=== PATIENT | female | born 1945 | race Two or more races ===

== ENCOUNTER 2018-03-21 10:00 | Outpatient (CLI) | payer OTHER | END 2018-03-21 10:04 | disposition home or self-care (01) | LOC: MAMO-SONO 10:00 | DX: Z12.31 Encounter for screening mammogram for malignant neoplasm of breast (principal); Z87.898 Personal history of other specified conditions; N64.4 Mastodynia ==

== ENCOUNTER 2020-04-04 06:26 | Day surgery (SDC) | payer OTHER ==
[~2020-04-04 06:26] MED LIST: ANASTROZOLE1 MG PO; ATACAND16 MG PO; NEXIUM40 M1 PO
== END 2020-04-04 22:00 | disposition home or self-care (01) ==
LOC: CIR.AMB 06:26
PROVIDERS: ATTEND Surgery
DX: C50.411 Malignant neoplasm of upper-outer quadrant of right female breast (principal); Z20.828 Contact with and (suspected) exposure to other viral communicable diseases

== ENCOUNTER 2020-04-25 12:22 | Outpatient (CLI) | payer OTHER | END 2020-04-25 12:42 | disposition home or self-care (01) | LOC: SONOGRAMA 12:22 | PROVIDERS: ATTEND Surgery | DX: C50.811 Malignant neoplasm of overlapping sites of right female breast (principal); N60.11 Diffuse cystic mastopathy of right breast; N60.12 Diffuse cystic mastopathy of left breast ==

== ENCOUNTER 2020-05-12 17:41 | Emergency (ER) | payer OTHER ==
[~2020-05-12] VITALS: Ht 177.8 cm; Wt 77.1 kg
== END 2020-05-12 19:58 | disposition home or self-care (01) ==
LOC: ER 17:41
DX: L02.411 Cutaneous abscess of right axilla (principal); T81.49XA Infection following a procedure, other surgical site, initial encounter

== ENCOUNTER 2020-05-16 12:47 | Outpatient (CLI) | payer OTHER | END 2020-05-16 13:01 | disposition home or self-care (01) | LOC: SONOGRAMA 12:47 | PROVIDERS: ATTEND Surgery | DX: C50.411 Malignant neoplasm of upper-outer quadrant of right female breast (principal); N61.0 Mastitis without abscess; N61.1 Abscess of the breast and nipple ==

== ENCOUNTER 2021-07-24 07:25 | Outpatient (CLI) | payer OTHER | END 2021-07-24 10:13 | disposition home or self-care (01) | LOC: NUCLEAR 07:25 | PROVIDERS: ATTEND Internal Medicine Cardiovascular Disease | DX: R07.89 Other chest pain (principal) | CPT/HCPCS: 78452; 93017; A9500 ==

== ENCOUNTER 2022-07-15 13:30 | Outpatient (CLI) | payer OTHER ==
[~2022-07-15 13:30] MED LIST changes: +FLONASE16 GM NASAL
== END 2022-07-15 13:34 | disposition home or self-care (01) ==
LOC: NUCLEAR 13:30
PROVIDERS: ATTEND Obstetrics & Gynecology
DX: M81.0 Age-related osteoporosis without current pathological fracture (principal)

== ENCOUNTER 2022-08-06 08:10 | Outpatient (CLI) | payer OTHER | END 2022-08-06 08:27 | disposition home or self-care (01) | LOC: MRI 08:10 | PROVIDERS: ATTEND Neuromusculoskeletal Medicine & OMM | DX: I72.9 Aneurysm of unspecified site (principal); I65.1 Occlusion and stenosis of basilar artery; I65.09 Occlusion and stenosis of unspecified vertebral artery; I65.29 Occlusion and stenosis of unspecified carotid artery; Q28.2 Arteriovenous malformation of cerebral vessels; R41.3 Other amnesia | CPT/HCPCS: 70546; 70553; Q9965; 70544 ==

== ENCOUNTER 2022-11-05 11:59 | Outpatient (CLI) | payer OTHER | END 2022-11-05 12:03 | disposition home or self-care (01) | LOC: RAD 11:59 | PROVIDERS: ATTEND Orthopaedic Surgery | DX: M16.11 Unilateral primary osteoarthritis, right hip (principal); M54.59 Other low back pain ==

== ENCOUNTER 2023-05-25 10:13 | Outpatient (CLI) | payer OTHER | END 2023-05-25 10:15 | disposition home or self-care (01) | LOC: TOM 10:13 | DX: R10.11 Right upper quadrant pain (principal) ==

== ENCOUNTER 2024-07-06 07:18 | Outpatient (CLI) | payer OTHER | END 2024-07-06 07:19 | disposition home or self-care (01) | LOC: NUCLEAR 07:18 | PROVIDERS: ATTEND Internal Medicine | DX: I20.9 Angina pectoris, unspecified (principal) | CPT/HCPCS: 78452; 93017; A9500 ==

== ENCOUNTER 2025-01-17 11:05 | Outpatient (CLI) | payer OTHER | END 2025-01-17 11:06 | disposition home or self-care (01) | LOC: SONOGRAMA 11:05 | PROVIDERS: ATTEND Internal Medicine | DX: E21.3 Hyperparathyroidism, unspecified (principal); E03.9 Hypothyroidism, unspecified ==